=== PATIENT | female | born 1945 | race Caucasian/White ===

== ENCOUNTER → 2017-05-21 09:20 | Outpatient (CLI) | payer MEDICARE, BC ==
[2014-08-17 11:08] VITALS: BMI 34.4
[~2017-05-21 09:20] MED LIST: ADVAIR 250/501 DISK INH; ALTOPREV40 MG PO; CALAN SR240 MG PO; COLACE100 MG PO; ESTRACE 0.0142.5 GM VG; METROGEL-VAGINA70 G1 VG; NORCO 10/325 TA1 TA1 PO; PRILOSEC20 MG PO; VENTOLIN HFA18 GM INH; ZOFRAN4 MG PO
== END | disposition home or self-care (01) ==
LOC: D.MRI 09:20
DX: M65.869 Other synovitis and tenosynovitis, unspecified lower leg (principal)

== ENCOUNTER 2017-12-20 09:30 | Emergency (ER) | payer MEDICARE, BC ==
[2014-08-17 11:08] VITALS: BMI 34.4
[2017-12-20 10:42] LABS: BASOPHILS 0.2 % (0-2); EOSINOPHILS 2.4 % (0-7); HEMATOCRIT 42.3 % (36.0-48.0); HEMOGLOBIN 13.8 g/dL (12-16); IMMATURE GRANULOCYTES 0.1 % (0-5); LYMPHOCYTES 15.9 % (15-50); MCH 28.3 pg (26.0-34.0); MCHC 32.6 g/dL (31.0-37.0); MCV 86.7 fL (80.0-100.0); MEAN PLATELET VOLUME 11.6 fL (7.4-10.4); MONOCYTES 7.2 % (2-11); NEUTROPHILS 74.2 % (40-80); PLATELET COUNT 217 10x3/uL (130-400); RBC 4.88 10x6/uL (4.00-5.40); RDW 14.6 % (11.5-14.5); WBC 8.3 10x3/uL (4.8-10.8)
[2017-12-20 10:52] LABS: ALBUMIN 3.3 g/dL (3.4-5.0); ALKALINE PHOSPHATASE 84 U/L (46-116); ALT (SGPT) 21 U/L (10-68); BILIRUBIN - TOTAL 0.79 mg/dL (0.2-1.3); CALC OSMOLALITY 280 mosm/kg (275-300); CALCIUM 8.6 mg/dL (8.5-10.1); CARBON DIOXIDE 27.8 mmol/L (21.0-32.0); CHLORIDE - SERUM 105 mmol/L (98-107); CREATININE - SERUM 0.7 mg/dL (0.6-1.3); GLUCOSE 111 mg/dL (74-106); POTASSIUM - SERUM 3.6 mmol/L (3.5-5.1); PROTEIN - SERUM 7.1 g/dL (6.4-8.2); SODIUM 139 mmol/L (136-145); UREA NITROGEN 19 mg/dL (7-18); eGFR NON AFRICAN AMERICAN 87 mL/min (90-120)
[2017-12-20 11:00] LABS: CREATINE KINASE 48 UL (21-215); PRO BNP 283 pg/mL (0-125)
[2017-12-20 11:01] LABS: TROPONIN-I < 0.017 ng/mL (0.000-0.060)
[2017-12-20 11:50] LABS: APPEARANCE HAZY (CLEAR); BILIRUBIN NEGATIVE (NEGATIVE); COLOR YELLOW (YELLOW); GLUCOSE NEGATIVE (NEGATIVE); KETONE NEGATIVE (NEGATIVE); NITRITE NEGATIVE (NEGATIVE); PROTEIN NEGATIVE (NEGATIVE); UROBILINOGEN NORMAL (NORMAL)
[2017-12-20 11:51] LABS: BACTERIA FEW /hpf (NONE SEEN); EPITHELIAL CELLS 0-5 /hpf (0-5); MUCUS <1+ /lpf (NONE SEEN); RED CELLS - URINE 25-50 /hpf (0-5); WHITE CELLS - URINE 0-5 /hpf (0-5)
== END 2017-12-20 15:39 | disposition home or self-care (01) ==
LOC: D.ER 09:30
PROVIDERS: Emergency Medicine
DX: E86.0 Dehydration (principal); R42 Dizziness and giddiness; K21.9 Gastro-esophageal reflux disease without esophagitis; I10 Essential (primary) hypertension; J45.909 Unspecified asthma, uncomplicated; I49.3 Ventricular premature depolarization; I45.10 Unspecified right bundle-branch block

== ENCOUNTER 2018-09-25 00:46 | Emergency (ER) | payer MEDICARE, BC ==
[~2018-09-25] VITALS: Ht 162.6 cm; Wt 88.6 kg
[2018-09-25 00:56] VITALS: Ht 162.6 cm; Wt 88.6 kg
[2018-09-25 02:03] LABS: BASOPHILS 0.2 % (0-2); EOSINOPHILS 1.6 % (0-7); HEMATOCRIT 40.1 % (36.0-48.0); HEMOGLOBIN 13.2 g/dL (12-16); IMMATURE GRANULOCYTES 0.2 % (0-5); LYMPHOCYTES 16.5 % (15-50); MCH 29.5 pg (26.0-34.0); MCHC 32.9 g/dL (31.0-37.0); MCV 89.5 fL (80.0-100.0); MEAN PLATELET VOLUME 10.9 fL (7.4-10.4); MONOCYTES 5.8 % (2-11); NEUTROPHILS 75.7 % (40-80); PLATELET COUNT 256 10x3/uL (130-400); RBC 4.48 10x6/uL (4.00-5.40); RDW 13.6 % (11.5-14.5); WBC 12.9 10x3/uL (4.8-10.8)
[2018-09-25 02:07] LABS: APTT 21.5 SECONDS (22.8-39.4); INR 0.97 (0.85-1.17); PROTIME 12.4 SECONDS (11.6-15.0)
[2018-09-25 02:22] LABS: ALBUMIN 3.1 g/dL (3.4-5.0); ALKALINE PHOSPHATASE 68 U/L (46-116); ALT (SGPT) 16 U/L (10-68); BILIRUBIN - TOTAL 0.34 mg/dL (0.2-1.3); CALC OSMOLALITY 281 mosm/kg (275-300); CALCIUM 8.3 mg/dL (8.5-10.1); CARBON DIOXIDE 28.8 mmol/L (21.0-32.0); CHLORIDE - SERUM 100 mmol/L (98-107); POTASSIUM - SERUM 3.4 mmol/L (3.5-5.1); PROTEIN - SERUM 7.2 g/dL (6.4-8.2); SODIUM 137 mmol/L (136-145); UREA NITROGEN 24 mg/dL (7-18); eGFR NON AFRICAN AMERICAN 58 mL/min (90-120)
[2018-09-25 02:24] LABS: GLUCOSE 172 mg/dL (74-106)
[2018-09-25 02:25] LABS: CKMB 0.4 U/L (0.0-3.6); CREATINE KINASE 35 UL (21-215); MAGNESIUM - SERUM 1.9 mg/dL (1.8-2.4); TROPONIN-I < 0.017 ng/mL (0.000-0.060)
[2018-09-25 06:09] VITALS: BP 147/68
== END 2018-09-25 06:10 | disposition home or self-care (01) ==
LOC: D.ER 00:46
PROVIDERS: Family Medicine
DX: R07.9 Chest pain, unspecified (principal); R10.9 Unspecified abdominal pain; I10 Essential (primary) hypertension; I45.10 Unspecified right bundle-branch block

== ENCOUNTER → 2018-10-03 10:01 | Outpatient (CLI) | payer MEDICARE, BC ==
[~2018-10-03] VITALS: Ht 162.6 cm; Wt 87.7 kg
--- NOTE | ~2018-10-03 | HEMODYNAMI ---
PATIENT:MAYA GOEL MEDICAL RECORD: [id number] : 45 LOCATION:[facility] ADMISSION DATE: 10/03/18 Generatedon:10/03/201812:27 Patient name: MAYA GOEL Patient #: [id number] SSN: DO B: 1945 Date of study: 10/03/2018 Page: Of Hemodynamic Procedure Report Patient Data Patient Demographics Procedure consent was obtained First Name: MAYA Gender: Female Last Name: AMANDO : 1945 [facility] Initial: NIDA Age: 73 year(s) Patient #: [id number] Race: Unknown Additional ID: [id number] Contact details [address]: [address] [place] [address] State: [place] City: [place] Zip code: [address] Past Medical History Allergies Allergen Reaction Date Comments Reported Codeine 10/03/2018 Other allergy 10/03/2018 hydrocodone, streptamycin Admission Admission Data Admission Date: 10/03/2018 Admission Time: 10:01 Arrival Date: 10/03/2018 Arrival Time: 0:00 Admit Source: Other Insurance Payor: Medicare Procedure Procedure Types Cath Procedure Diagnostic Procedure LHC LH w/Coronaries PCI Procedure Coronary Stent Coronary Stent Initial Procedure Description Procedure Date Procedure Date: 10/03/2018 Procedure Start Time: 12:07 Procedure End Time: 12:23 Procedure Staff Name Function Christian Renteria MD Performing Physician Nancy Crooks RT Monitor Alesia Tuttle RT Scrub Haresh Kinney RN Nurse Procedure Data Cath Procedure Fluoroscopy Diagnostic fluoroscopy Total fluoroscopy Time: 3.5 time: 3.5 min min Diagnostic fluoroscopy Total fluoroscopy dose: 523 dose: 523 mGy mGy Contrast Material Contrast Material Type Amount (ml) Isovue 300 69 Entry Location Entry Primary Successful Side Size Upsize Upsize Entry Closure Cameron ccessful Closure Location (Fr) 1 (Fr) 2 (Fr) Remarks Device Remarks Radial Right 6 Fr Mechanical TR artery Short Compression Estimated blood loss: 10 ml Diagnostic catheters Device Type Used For End Catheter Placement DIAGNOSTIC [place] 110cm 5 Procedure Fr catheter ([id number]) DIAGNOSTIC AR2 MOD 5 Fr Procedure catheter ([id number]) Procedure Complications No complications Procedure Medications Medication Administration Route Dosage Oxygen etCO2 Nasal cannula 2 l/min Lidocaine 2% added to field 20 Heparin Flush Bag added to field 2 bags (1000units/500ml NS) 0.9% NaCl I.V. 100 ml/hr Radial Cocktail I.A. 1 syringe (Verapomil 2mg/Nitro 400mcg/Heparin 1500units) Versed I.V. 2 mg Fentanyl I.V. 100 mcg Heparin Bolus I.V. 4000 units Integrilin (Bolus I.V. 7.9 ml 2mg/ml) Versed I.V. 2 mg Fentanyl I.V. 50 mcg Versed I.V. 2 mg Plavix P.O. 600 mg Hemodynamics Rest Heart Rate: 92 (bpm) Pressure Samples Time Site Value (mmHg) Purpose Heart Use Rate(bpm) 12:10 LV 96/46,40 Snapshot 92 Snapshots Pre Cath Intra NCS Post Cath Vital Signs Time Heart Resp SPO2 etCO2 NIBP (mmHg) Rhythm Pain Sedation Rate (ipm) (%) (mmHg) Status Level (bpm) 11:53:15 94 14 96 0 149/93(115) NSR 0 (11) 10(A) , No pain 11:57:26 87 10 96 37.9 147/79(116) NSR 0 (11) 10(A) , No pain 12:01:34 87 14 97 35.6 135/85(108) NSR 0 (11) 10(A) , No pain 12:06:40 73 17 95 39 116/74(95) NSR 0 (11) 10(A) , No pain 12:10:39 91 16 97 40.1 113/74(93) NSR 0 (11) 9(A) , No pain 12:14:37 91 15 92 40.9 121/78(102) NSR 0 (11) 9(A) , No pain 12:18:39 89 15 93 42.4 134/75(98) NSR 0 (11) 10(A) , No pain 12:22:46 80 16 93 43.9 114/71(94) NSR 0 (11) 10(A) , No pain Medications Time Medication Route Dose Verified Delivered Reason Not es Effectiveness by by 11:04:54 Radial Cocktail I.A. 1 Christian Gonzales for (Verapomil syringe Myra Renteria MD vasodilation 2mg/Nitro 400mcg/Heparin 1500units) 11:57:25 Oxygen etCO2 2 l/min Christian Hutson used for Nasal yMra Kinney RN procedure cannula 11:57:32 Lidocaine 2% added 20ml Christianrony Gonzales for local to vial Myra Renteria MD anesthetic field 11:57:37 Heparin Flush added 2 bags Christian Gonzales used for Bag to Myra Renteria MD procedure (1000units/500ml field NS) 11:57:47 0.9% NaCl I.V. 100 Christian Hutson Per physician ml/hr Myra Kinney RN 12:06:26 Versed I.V. 2 mg Christian Hutson for sedation Myra Kinney RN 12:06:32 Fentanyl I.V. 100 mcg Christian Hutson for sedation Myra Kinney RN 12:09:20 Versed I.V. 2 mg Christian Hutson for sedation Myra Kinney RN 12:09:24 Fentanyl I.V. 50 mcg Christian Hutson for sedation Myra Kinney RN 12:14:13 Heparin Bolus I.V. 4000 Christian Hutson for mame ified units Myra Kinney RN anticoagulation with dr renteria 12:15:53 Integrilin I.V. 7.9 ml Christian Hutson for was matilda (Bolus 2mg/ml) Myra Kinney RN antiplatelet 2.1 ml therapy of vial 12:19:30 Versed I.V. 2 mg Christian Hutson for sedation Myra Kinney RN 12:23:03 Plavix P.O. 600 mg Christian Hutson for Myra Kinney RN antiplatelet therapy Procedure Log Time Note 11:04:54 Radial Cocktail (Verapomil 2mg/Nitro 400mcg/Heparin 1500units) 1 syringe I.A. was administered by Christian Renteria MD; for vasodilation; 11:34:15 Haresh Kinney RN sent for patient. Start room use. 11:34:16 Time tracking: Regular hours (M-F 7:00 - 5:00) 11:34:20 Plan of Care:Hemodynamics will remain stable., Cardiac rhythm will remain stable., Comfort level will be maintained., Respiratory function will remain adequate., Patient/ family verbilizes understanding of procedure., Procedure tolerated without complication., Recovers from procedure without complications.. 11:34:35 Admit Source: Other 11:34:37 Arrival Date: 10/03/2018 12:00:00 AM 11:34:43 Insurance Payor : Medicare 11:41:37 Patient received from Pre/Post Procedure Room to CCL 2 Alert and oriented. Tansferred to table in Supine position. 11:41:39 Warm blankets applied, and kaylynn hugger turned on for patient comfort. 11:41:39 Correct patient and procedure confirmed by team. 11:41:41 Signed procedure consent form obtained from patient. 11:41:43 ECG and BP/O2 sat monitors applied to patient. 11:52:04 Full Disclosure recording started 11:52:08 Rhythm: sinus rhythm 11:52:10 Vital chart was started 11:52:53 H&P Date Dictated: 10/02/2018 Within 30 days and on chart., H&P Addendum completed by physician on day of procedure. (MUST COMPLETE FOR ALL OUTPATIENTS). 11:52:55 Pre-procedure instructions explained to patient. 11:52:55 Pre-op teaching completed and patient verbalized understanding. 11:52:57 Family in waiting room. 11:52:59 Patient NPO since Midnight. 11:53:04 Patient allergic to Codeine 11:53:20 Patient allergic to Other allergyhydrocodone, streptamycin 11:53:22 Is the patient allergic to Iodine/contrast media? No. 11:53:24 Is patient on blood thinner?No 11:53:26 Patient diabetic? No. 11:53:31 Snore? Yes 11:53:33 Previous problem with sedation/anesthesia? No ? 11:53:37 Sleep apnea? No 11:53:38 Deviated septum? No 11:53:39 Opens mouth fully? Yes 11:53:40 Sticks out tongue? Yes 11:53:44 Airway obstruction? Yes Asthma 11:53:48 Dentures? Yes In Tight 11:53:52 Pre procedure: right dorsailis pedis pulse 2+ Normal; easily identifiable; not easily obliterated 11:53:54 Modified Mayco's test Ulnar < 7 seconds 11:53:55 Patient pain scale 0/10 ?. 11:54:00 IV patent on arrival in left antecubital with 0.9% NaCl at KVO. 11:54:02 Lab results completed and on chart. 11:54:07 Right Radial & Right Groin area was prepped with chlora-prep and draped in sterile fashion 11:54:07 Alarms reviewed by R. N. 11:54:08 Sharps counted by scrub and verified by R.N. 11:54:11 Use device set Radial Dx or PCI 11:54:12 ACIST Syringe (26108) opened to sterile field. 11:54:12 Medline Cath Pack ([id number]) opened to sterile field. 11:54:13 Bag Decanter (2002S) opened to sterile field. 11:54:13 DIAGNOSTIC WIRE .035 260cm J wire (107742) opened to sterile field. 11:54:14 ACIST Hand Control (11020) opened to sterile field. 11:54:14 ACIST Manifold (37292) opened to sterile field. 11:54:15 Tegaderm 4 x 4 (1626W) opened to sterile field. 11:54:15 MBrace Wrist Support ([id number]) opened to sterile field. 11:54:16 SHEATH 6FR Slender (98-1060) opened to sterile field. 11:57:25 Oxygen 2 l/min etCO2 Nasal cannula was administered by Haresh Kinney RN; used for procedure; 11:57:32 Lidocaine 2% 20ml vial added to field was administered by Christian Renteria MD; for local anesthetic; 11:57:37 Heparin Flush Bag (1000units/500ml NS) 2 bags added to field was administered by Christian Renteria MD; used for procedure; 11:57:47 0.9% NaCl 100 ml/hr I.V. was administered by Haresh Kinney RN; Per physician; 12:01:04 Zero performed for pressure channel P1 12:05:12 Physician arrived 12:05:13 --------ALL STOP TIME OUT------ 12:05:14 Final Timeout: patient, procedure, and site verified with staff and physician. All members of the team are in agreement. 12:05:16 Right Radial & Right Groin site verified by team. 12:05:20 Physical assessment completed. ASA score P 2 - A patient with mild systemic disease as per Christian Renteria MD. 12:05:25 Sedation plan: IV Moderate Sedation Medication:Versed, Fentanyl 12:06:20 Procedure started. 12:06:26 Versed 2 mg I.V. was administered by Haresh Kinney RN; for sedation; 12:06:32 Fentanyl 100 mcg I.V. was administered by Haresh Kinney RN; for sedation; 12:07:07 Local anesthetic to right radial artery with Lidocaine 2% by Christian Renteria MD.INITIAL ACCESS ONLY 12:08:29 A 6 Fr Short sheath was inserted into the Right Radial artery 12:08:45 A DIAGNOSTIC [place] 110cm 5 Fr catheter (284841) was advanced over the wire and used for Procedure. 12:09:05 LV angiography performed. 12::20 Versed 2 mg I.V. was administered by Haresh Kinney RN; for sedation; 12::24 Fentanyl 50 mcg I.V. was administered by Haresh Kinney RN; for sedation; 12:10:47 EF : 55 % 12:11:13 Catheter removed. 12:12:28 GUIDE 6FR XBC 3 ([id number]) opened to sterile field. 12:13:29 INFLATOR Merit BasixCompak (KT5907) opened to sterile field. 12:13:29 CHOICE PT Extra Support 182cm wire ([id number]) opened to sterile field. 12:14:13 Heparin Bolus 4000 units I.V. was administered by Haresh Kinney RN; for anticoagulation; verified with dr renteria 12:14:52 Proceeding to intervention. 12:15:12 6 Fr XBC3 guide catheter was inserted over the wire 12:15:22 choice pt ex wire advanced. 12:15:33 Wire advanced across lesion. 12:15:53 Integrilin (Bolus 2mg/ml) 7.9 ml I.V. was administered by Haresh Kinney RN; for antiplatelet therapy; wasted 2.1 ml of vial 12:16:32 Place stent Inflation Number: 1 A INTEGRITY RX 2.5 x 12 stent ([id number]) was prepped and advanced across the Mid LAD. The stent was deployed at 13 MANDIE for 0:07 (min:sec). 12:16:52 Guide catheter removed. 12:17:02 A DIAGNOSTIC AR2 MOD 5 Fr catheter (481060V) was advanced over the wire and used for Procedure. 12:17:36 RCA angiography performed. 12::43 Catheter removed. 12:19: Sheath removed intact; hemostasis achieved with Mechanical Compression to the Right Radial artery. 12:19:04 Procedure ended.(Physican Out) 12:: Fluoroscopy time 03.50 minutes. 12::30 Versed 2 mg I.V. was administered by Haresh Kinney RN; for sedation; 12:: Fluoroscopy dose: 523 mGy 12:: Flurop Dose total: 523 12::36 Contrast amount:Isovue 300 69ml. 12::37 Sharps counted by scrub and verified by R.N. 12::42 TR band inflated with 10cc of air. 12::43 Insertion/operative site no bleeding no hematoma. 12:21:20 Post right radial artery:stable 12::29 Post Procedure Pulses reassessed and unchanged 12::44 Post-procedure physical assessment completed. ASA score P 2 - A patient with mild systemic disease as per Christian Renteria MD. 12:21:50 Post procedure rhythm: unchanged. 12::53 Estimated blood loss: 10 ml 12::55 Post procedure instruction explained to patient.Patient verbalizes understanding. 12::25 Procedure type changed to Cath procedure, Diagnostic procedure, LHC, LHC w/Coronaries, PCI procedure, Coronary Stent, Coronary Stent Initial 12::26 Procedure and supply charges have been captured, reviewed, submitted and are correct. 12:23:03 Plavix 600 mg P.O. was administered by Haresh Kinney RN; for antiplatelet therapy; 12:23:07 Procedure Complication : No complications 12:23:09 Vital chart was stopped 12:23:10 See physician's report for complete and final results. 12:23:12 Report given to Pre/Post Procedure Room. 12:23:16 Patient transfered to Pre/Post Procedure Room with Stretcher. 12:23:18 Procedure ended. 12:23:18 Full Disclosure recording stopped 12:23:35 ACC-PCI Only Patient was given prescriptions, or instructed by Christian Renteria MD to start/continue the following medications upon discharge: Plavix 12:23:47 End room use (Document Last) Intervention Summary Intervention Notes Time ActionType Lesion and Equipment Action# Pressure Duration Attributes Used 12:16:32 Place stent Mid LAD INTEGRITY RX 1 13 00:07 2.5 x 12 stent ([id number]) Device Usage Item Name Manufacture Quantity Catalog Number Hospital Part Current Mini mal Lot# / Charge Number Stock Stock Serial# Code ACIST Acist 1 68501 808422 906226 666974 20 Syringe Medical (61034) Systems Inc Medline Cath Medline 1 [id number] 964097 84510 799504 5 Pack ([id number]) Bag Decanter Microtek 1 2001S 947528 35200 628441 5 (2001S) Medical Inc. DIAGNOSTIC [facility] 1 361030 871233 257216 153272 30 WIRE .035 260cm J wire (601634) ACIST Hand Acist 1 23331 155371 878193 222972 5 Control Medical (38476) Systems Inc ACIST Acist 1 49949 054557 876321 970935 5 Manifold Medical (71420) Systems Inc Tegaderm 4 x 3M 1 1626W 033657 445930 681236 5 4 (1626W) MBrace Wrist Advanced 1 140-0250-00 265358 20641 284024 5 Support Vascular (636892910) Dynamics SHEATH 6FR Terumo 1 [id number] 677462 946198 786005 5 Slender (80-1060) DIAGNOSTIC Terumo 1 40-7853 532846 136977 734661 5 [place] 110cm 5 Fr catheter (690233) GUIDE 6FR Cardinal 1 [id number] 008810 88617 897588 5 XBC 3 Health (66060133) INFLATOR Merit 1 XQ6920 022821 379293 568121 15 [facility] Medical BasixCompak (TD9516) CHOICE PT [place] 1 [id number] 791387 011745 454082 5 Extra Scientific Support 182cm wire (1610694U0) INTEGRITY RX Medtronic 1 [id number] 340867 476422 148793 5 [id number] 2.5 x 12 stent ([id number]) DIAGNOSTIC Cardinal 1 [id number] 512640 430045 243356 20 AR2 MOD 5 Fr Health catheter (429557H) Signature Audit [place] Stage Time Signature Unsigned Intra-Procedure 10/03/2018 Nancy Crooks 12:27:21 PM RT(R) Signatures Monitor : Nancy Crooks Signature : RT Date : Time : [address] [place] [address]
--- NOTE | ~2018-10-03 | OP ---
PATIENT NAME: MAYA GOEL MEDICAL RECORD: [id number] :45 LOCATION:[facility] ADMISSION DATE: SURGEON: CLEMENT SIU MD DATE OF OPERATION: 10/03/2018 PROCEDURES: 1. PTCA and stent of LAD. 2. Left heart catheterization. 3. Selective coronary angiography. 4. Left ventriculogram. INDICATION: Angina and coronary artery disease. PROCEDURE IN DETAIL: After informed consent was obtained and after a detained explanation of risks, benefits as well as alternative therapies, the patient elected to proceed with angiogram and angioplasty. The right radial area was prepped and draped in normal sterile fashion. Right radial artery cannulated via modified Seldinger technique with placement of 6-Andorran sheath. All catheters exchanged through this sheath. FINDINGS: Left ventriculogram was performed in standard 30-degree RENDON view, reveals good cardiac wall motion throughout all segments. Overall ejection fraction estimated 60%. SELECTIVE CORONARY ANGIOGRAPHY: 1. Left main is with no significant angiographic disease. 2. Left anterior descending has 80% stenosis in mid vessel. 3. Left circumflex has mild irregularities, but no flow-limiting stenosis. 4. Right coronary has mild irregularities, but no flow-limiting stenosis. PTCA AND STENT OF THE LAD: The stent used was a 2.5 x 8-mm Integrity. Result was 0% residual stenosis. OVERALL IMPRESSION: Successful PTCA and stent of the LAD going from 80% initial stenosis to 0% residual. TRANSINT:[id number] Voice Confirmation ID: [id number] DOCUMENT ID: [id number] CLEMENT SIU MD at 1025 CC: [id number] DICTATION DATE: 10/03/18 1221 POOLING OPERATOR: 10/03/18 1236 DEP CLI 10/03/18 [place] [address]
[~2018-10-03 10:01] MED LIST changes: +BAYER CHEWABLE81 MG PO; +PLAVIX75 MG PO; +SINGULAIR10 MG PO
[2018-10-03 10:21] VITALS: BP 135/69; Ht 162.6 cm; Wt 87.7 kg
[2018-10-03 10:55] LABS: ANION GAP 15.6 mmol/L (8-16); CALCIUM 9.4 mg/dL (8.5-10.1); POTASSIUM - SERUM 3.6 mmol/L (3.5-5.1)
[2018-10-03 11:05] LABS: BASOPHILS 0.1 % (0-2); HEMOGLOBIN 14.2 g/dL (12-16); IMMATURE GRANULOCYTES 0.2 % (0-5); LYMPHOCYTES 18.1 % (15-50); MCHC 33.8 g/dL (31.0-37.0); MCV 88.6 fL (80.0-100.0); MEAN PLATELET VOLUME 11.5 fL (7.4-10.4); MONOCYTES 6.3 % (2-11); NEUTROPHILS 74.3 % (40-80); RBC 4.74 10x6/uL (4.00-5.40); RDW 13.5 % (11.5-14.5); WBC 10.2 10x3/uL (4.8-10.8)
[2018-10-03 11:06] LABS: PLATELET COUNT 314 10x3/uL (130-400)
== END | disposition home or self-care (01) ==
LOC: D.CATH 10:01
PROVIDERS: Internal Medicine Interventional Cardiology
DX: I25.119 Atherosclerotic heart disease of native coronary artery with unspecified angina pectoris (principal); Z01.812 Encounter for preprocedural laboratory examination

== ENCOUNTER 2019-01-08 19:00 | Outpatient (CLI) | payer MEDICARE, BC ==
[2018-10-03 10:21] VITALS: BMI 33.2
== END 2019-01-08 23:59 | disposition home or self-care (01) ==
LOC: D.MAMMO 19:00
PROVIDERS: ATTEND Family Medicine
DX: Z12.31 Encounter for screening mammogram for malignant neoplasm of breast (principal)

== ENCOUNTER 2020-01-01 06:05 | Day surgery (SDC) | payer MEDICARE, BC ==
[2019-12-31 13:52] LABS: CALCIUM 8.7 mg/dL (8.5-10.1); CARBON DIOXIDE 27.4 mmol/L (21.0-32.0); CREATININE - SERUM 1.1 mg/dL (0.6-1.3); POTASSIUM - SERUM 3.4 mmol/L (3.5-5.1)
[2019-12-31 14:09] LABS: HEMATOCRIT 46.2 % (36.0-48.0); HEMOGLOBIN 15.3 g/dL (12-16); MCH 29.4 pg (26.0-34.0); MCHC 33.1 g/dL (31.0-37.0); MCV 88.7 fL (80.0-100.0); MEAN PLATELET VOLUME 11.2 fL (7.4-10.4); RBC 5.21 10x6/uL (4.00-5.40); RDW 13.5 % (11.5-14.5); WBC 9.2 10x3/uL (4.8-10.8)
[~2020-01-01] VITALS: Ht 160 cm; Wt 88.0 kg
[2020-01-01 06:41] VITALS: BP 109/62; Ht 160 cm; Wt 88.0 kg
[2020-01-01] MEDS ORDERED: TRAZODONE HCL150 MG PO (06:47)
[2020-01-01] MEDS ORDERED: DILAUDID2 MG PO (09:07)
--- NOTE | 2020-01-01 10:45 | NUR ---
PATIENT HAVING NAUSEA AND SMALL AMOUNT VOMITING. DR LEI ORDERS ZOFRAN. ZOFRAN GIVEN IV. PATIENT AND DAUGHTERS STATE THAT PATIENT HAS ALWAYS HAD NAUSEA AND VOMITING AFTER SURGERIES OR PROCEDURES IN THE PAST. BOWEL SOUNDS ACTIVE TO AUSCULTATION.
--- NOTE | 2020-01-01 11:35 | NUR ---
PATIENT FEELS BETTER, SIPPING ON LEMON-LYTTON SODA WITHOUT VOMITING. DRESSED IN PERSONAL CLOTHING. LEFT HAND PIV DC'D WITH TIP INTACT. SLING-SHOT SLING IN PLACE TO RIGHT SHOULDER 1144 DISCHARGED HOME VIA WHEELCHAIR TO PRIVATE VEHICLE WITH DAUGHTER AFTER DISCHARGE INSTRUCTIONS REVIEWED WITH PATIENT AND DAUGHTERS
--- NOTE | 2020-01-01 14:58 | OP ---
PATIENT NAME: MAYA GOEL MEDICAL RECORD: [id number] :45 [facility] AD[facility]ION DATE: SURGEON: BUTCH LEI MD DATE OF OPERATION: 01/01/2020 PREOPERATIVE DIAGNOSES: 1. Rotator cuff tear of the right shoulder. 2. Impingement syndrome of the right shoulder. 3. Acromioclavicular arthritis of the right shoulder. POSTOPERATIVE DIAGNOSES: 1. Rotator cuff tear of the right shoulder. 2. Impingement syndrome of the right shoulder. 3. Acromioclavicular arthritis of the right shoulder. 4. Severe biceps tendinitis. PROCEDURES: 1. Arthroscopic rotator cuff repair, right shoulder. 2. Arthroscopic biceps tenotomy, right shoulder. 3. Arthroscopic distal clavicle excision done through separate incision - 1 cm. 4. Arthroscopic subacromial decompression with acromioplasty and bursectomy. SURGEON: Butch Lei MD ANESTHESIA: General. INTRAOPERATIVE COMPLICATIONS: None. SUMMARY OF PATHOLOGIC FINDINGS: Consistent with preoperative MRI and diagnoses, the patient did have a full thickness rotator cuff tearing of the supraspinatus tendon as well as downward sloping of acromion and excoriation of the coracoacromial ligament and severe AC arthropathy. Also, the patient was found to have severe biceps tendinitis. OPERATIVE SUMMARY IN DETAIL: After obtaining the appropriate preoperative orthopedic surgery consent as well as anesthetic consultation, evaluation and clearance, the patient was brought to the operating room and placed on the operating table in a supine position. After adequate general laryngeal mask airway was administered, the patient was placed in left lateral decubitus position. All pressure points were padded including the down leg peroneal pad as well as axillary roll. The patient was held firmly to the operating table using the vacuum pack suction system. Right upper extremity and shoulder were then prepped and draped in routine sterile fashion. The arm was held in the Arthrex traction boom at 30 degrees of forward flexion, 30 degrees of abduction, 10 pounds of traction laterally. At this point, appropriate timeout was taken and agreed upon by all given the patient's unique identifiers. Arthroscopy was established in the glenohumeral joint from the posterior portal. Diagnostic arthroscopy showed the patient to have rotator cuff tear. Anterior portal was established in the anterior safe interval. An accessory lateral portal was created for a transarthroscopic rotator cuff tear approach to biceps tenotomy. This was done with the Custer tissue ablation system and tenotomized at the bicipital labral junction. At this point, the undersurface of the rotator cuff was debrided of any nonviable appearing elements. Attention was then turned to the subacromial space. While on subacromial space, surface tissue ablation system was utilized to denude the undersurface of the acromion of all soft OPERATIVE REPORT [id number] MAYA GOEL tissue elements. A 5.0 bur was then used to perform acromioplasty at the level of the acromioclavicular joint. Having completed this, a separate arthroscopic portal anteriorly, the distal clavicle was excised for 1 cm. Lastly, further decortication of the supraspinatus tendinous footprint was taken down. A single FiberTape was placed in an inverted mattress style fashion, anchored laterally with a 5.5 SwiveLock from Arthrex. Having completed this, arthroscopy portals were closed in routine interrupted fashion with 4-0 Prolene. Sterile dressings were applied. The patient was awakened and taken to recovery room in stable condition. All final needle and sponge counts were correct. TRANSINT:[id number] Voice Confirmation ID: [id number] DOCUMENT ID: [id number] DO ELLIS, BUTCH KELLER at 1458 CC: [id number] DICTATION DATE: 01/01/20910 CHAIN SALES CONSULTANT: 01/01/20 1013 [facility] [address] [place] [address]
== END 2020-01-01 11:44 | disposition home or self-care (01) ==
LOC: D.OPS 06:05 → D.PAN 08:15 → D.OPS 08:50 → D.PAN 10:30 → D.OPS 10:30
PROVIDERS: Anesthesiology; ATTEND Orthopaedic Surgery
DX: M75.101 Unspecified rotator cuff tear or rupture of right shoulder, not specified as traumatic (principal); M75.41 Impingement syndrome of right shoulder; M13.811 Other specified arthritis, right shoulder; M75.21 Bicipital tendinitis, right shoulder